=== PATIENT | female | born 2000 | race Hispanic/Latino ===

== ENCOUNTER → 2020-06-02 | Outpatient (CLI) | payer SELFPAY ==
[~2020-06-02] MED LIST: GADOBENATE DIMEGLUMINE 1 ML IV ONE
--- NOTE | 2020-06-02 14:50 | Diagnostic Imaging Report ---
Examination: MRI BRAIN WOW History: Atypical migraines. Blurry vision. Floaters. Headaches. Comparison studies: None Technique: Pre-contrast: Sagittal T2; axial T1, GRE or SWI, DWI, T2 FLAIR Post-contrast: axial, sagittal and coronal T1. Intravenous contrast: 13 mL MultiHance Findings: Scalp: No abnormal signal. No masses. Bone marrow: Normal in signal intensity. Brain volume: Adequate for age. No volume loss. Ventricles: Normal in size and configuration. No hydrocephalus. Parenchyma: No abnormal signal intensities. No masses, hemorrhage, acute or chronic vascular insults. Extra-axial spaces: No lesion, fluid collection or hematoma. Enhancement: No abnormal enhancement. Suprasellar and sellar region: No abnormalities. Craniocervical junction: No abnormalities. The foramen magnum is patent. No Chiari malformations. Vessels: Normal flow-voids in the arteries and sinuses. Additional findings:None. IMPRESSION: Normal contrast enhanced brain MRI. Signed by: Dr. Siri Pretty M.D. on 06/02/2020 2:47 PM
== END ==
LOC: MRI 11:12
PROVIDERS: ATTEND Radiology Neuroradiology
DX: G43.009 Migraine without aura, not intractable, without status migrainosus (principal)
CPT/HCPCS: 70553

== ENCOUNTER → 2020-06-18 | Outpatient (CLI) | payer SELFPAY ==
[2020-06-18 11:02] LABS: TOTAL PROTEIN,CSF 29.8 mg/dL (15-40)
[2020-06-18 11:36] LABS: APPEARANCE,CSF CLEAR (CLEAR); COLOR,CSF COLORLESS (COLORLESS); TUBE NUMBER 3
[2020-06-18 11:37] LABS: WHITE BLOOD CELL,CSF 2 cells/uL (0-5)
--- NOTE | 2020-06-18 11:39 | Diagnostic Imaging Report ---
Procedure: Lumbar puncture Modality: Fluoroscopy Total fluoroscopy time: 1.5 Total number of films: 5 Sedation: None Anesthesia: 1% lidocaine local Indication: ^NORMAL PRESSURE HYDROCEPHALUS Discussion: The patient was sterilely prepped and draped. 1% lidocaine was used for local anesthesia. Using fluoroscopic guidance, a 22-gauge 3 1/2 inch spinal needle was introduced into the thecal sac at the L3-4 level. Approximately 12 cc of clear spinal fluid was removed and sent to the laboratory. There were no procedure related complications. Opening pressure: 14 mmHg Closing pressure: 10 mmHg Patient tolerated the procedure well and was transferred to radiology recovery. Patient will be monitored for 2 hours post procedure before discharge. Impression: Successful fluoroscopy guided lumbar puncture. Normal opening and closing pressures. Signed by: El Moreno MD on 06/18/2020 11:35 AM
== END ==
LOC: DX 08:40
PROVIDERS: ATTEND Radiology Neuroradiology
DX: G91.2 (Idiopathic) normal pressure hydrocephalus (principal)
CPT/HCPCS: 36415; 62328; 77003; 81025; 82945; 84157; 89051